=== PATIENT | male | born 1940 ===

== ENCOUNTER → 2016-08-27 | Day surgery (SDC) | payer OTHER ==
[2016-06-11 10:30] VITALS: Ht 160 cm; Wt 90.9 kg
[~2016-08-27] VITALS: Ht 160 cm; Wt 90.9 kg
[~2016-08-27] MED LIST: AMLO2.5T PO; ASCA500 PO; ASPI81TA28 PO; ATEN50TA8 PO; ATOR-24 PO; BIOT1TAB5 PO; CITA10TA4 PO; EZET10TA63 PO; LOSA50TA36 PO; MEMA1CAP3 PO; MULTTAB58 PO
== END | disposition home or self-care (01) ==
LOC: EDSTATUS 07:00 → C.PAT 11:17
PROVIDERS: ATTEND Podiatrist Foot & Ankle Surgery

== ENCOUNTER → 2016-10-14 | Outpatient (CLI) | payer OTHER ==
[~2016-10-14] MED LIST changes: -LOSA50TA36 PO; +LOSA50TA55 PO
[2016-10-14 18:41] LABS: BASO % 0.4 %; BASO ABS # 0.03 K/uL (0-0.2); COMPLETE YES; HEMATOCRIT 38.5 % (42-52); IG% 0.3 %; LYMPH % 33.1 %; LYMPH ABS # 2.47 K/uL (1.2-3.4); MEAN CELL VOLUME 87.7 fL (80-100); MEAN CORPUSCULAR HEMOGLOBIN 30.5 pg (25-34); MEAN CORPUSCULAR HGB CONC 34.8 g/dl (32-36); MEAN PLATELET VOLUME 10.7 fL (7.4-10.4); MONO % 8.3 %; NEUT % 55.9 %; PLATELET COUNT 216 K/uL (130-400); RED BLOOD COUNT 4.39 M/uL (4.7-6.1); WHITE BLOOD COUNT 7.46 K/uL (4.8-10.8)
[2016-10-14 18:51] LABS: ALT/SGPT 31 U/L (12-78); AST/SGOT 29 U/L (15-37); BLOOD UREA NITROGEN 25 mg/dl (7-18); BUN/CREATININE RATIO 19.3 (10-20); CARBON DIOXIDE 30 mmol/L (21-32); CHLORIDE 103 mmol/L (98-107); GLUCOSE 79 mg/dl (70-99); POTASSIUM 3.9 mmol/L (3.5-5.1); SODIUM 139 mmol/L (136-145)
[2016-10-14 18:54] LABS: ALB/GLOB RATIO 0.9 (0.9-2); ALKALINE PHOSPHATASE 105 U/L (45-117); CHOLESTEROL 126 mg/dl (0-200); CHOLESTEROL/HDL RATIO 4.3; HDL CHOLESTEROL 29 mg/dl; LDL CHOLESTEROL CALCULATED 48 mg/dl; TRIGLYCERIDES 246 mg/dl (0-150); VERY LOW DENSITY LIPOPROT CALC 49 mg/dl
== END | disposition home or self-care (01) ==
LOC: C.LABSPEC 17:53
PROVIDERS: ATTEND Family Medicine
DX: I10 Essential (primary) hypertension (principal); E78.2 Mixed hyperlipidemia; G30.8 Other Alzheimer's disease; F32.9 Major depressive disorder, single episode, unspecified